=== PATIENT | female | born 1985 | race Caucasian/White ===

== ENCOUNTER 2025-01-22 19:58 | Emergency (ER) | payer OTHER ==
[~2025-01-22] VITALS: Ht 172.7 cm; Wt 61.2 kg
[2025-01-22 21:14] LABS: APPEARANCE,URINE CLEAR (CLEAR); BLOOD, URINE 2+ Ery/uL (NEGATIVE); LEUKOCYTE ESTERASE ,URINE 1+ (NEGATIVE); NITRITE, URINE NEGATIVE (NEGATIVE); UGLUCOSE NEGATIVE (NEGATIVE)
[2025-01-22] MEDS ORDERED: CEPH-570 PO (21:19)
[2025-01-22 21:31] VITALS: BP 130/80; TEMP 98.3; O2SAT 100
[2025-01-22 21:35] LABS: ADD URINE CULTURE YES
[2025-01-23 22:53] LABS: HIV-1/2 ANTIBODY NON REACTIVE (NONREACTIVE)
[2025-01-24 18:07] LABS: CHLAMYDIA TRACHOMATIS NAA Negative (Negative); NEISSERIA GONORRHOEAE NAA Negative (Negative)
[2025-01-25 07:07] LABS: RAPID PLASMA REAGIN QUAL. Non Reactive (Non Reactive)
== END 2025-01-22 21:32 | disposition home or self-care (01) ==
LOC: ER 20:04
DX: N39.0 Urinary tract infection, site not specified (principal); N89.8 Other specified noninflammatory disorders of vagina; Z11.3 Encounter for screening for infections with a predominantly sexual mode of transmission; Z88.1 Allergy status to other antibiotic agents
CPT/HCPCS: 36415; 81001; 86592; 86593; 87086-TC; 87110-TC; 87186-TC; 87491; 87591; 87806